=== PATIENT | female | born 1975 | race Caucasian/White ===

== ENCOUNTER 2018-12-29 18:45 | Emergency (ER) | payer OTHER ==
[~2018-12-29] VITALS: Ht 170.2 cm; Wt 122.5 kg
[2018-12-29] MEDS ORDERED: CYCLOBENZAPRINE5 MG PO (20:46)
[2018-12-29] MEDS ORDERED: MEDROLDOSEPACK PO (20:46)
[2018-12-29] MEDS ORDERED: NORCO 10-325 T1 EACH PO (20:46)
[2018-12-29] MEDS ORDERED: ATIVAN0.5 MG PO (21:00)
[2018-12-29 21:16] VITALS: BP 132/70
== END 2018-12-29 21:25 | disposition home or self-care (01) ==
LOC: ER 18:45
DX: M50.222 Other cervical disc displacement at C5-C6 level (principal); F41.9 Anxiety disorder, unspecified; M54.9 Dorsalgia, unspecified; M25.561 Pain in right knee; M25.562 Pain in left knee; Z98.890 Other specified postprocedural states; V89.2XXA Person injured in unspecified motor-vehicle accident, traffic, initial encounter; Y92.89 Other specified places as the place of occurrence of the external cause; Y93.89 Activity, other specified; Y99.8 Other external cause status